=== PATIENT | male | born 1955 | race Two or more races ===

== ENCOUNTER 2023-05-02 13:54 | Emergency (ER) | payer OTHER ==
[~2023-05-02] VITALS: Ht 172.7 cm; Wt 86.2 kg
[2023-05-02] MEDS ORDERED: TIROSINT125 MCG PO (14:30)
[2023-05-02] MEDS ORDERED: CARVEDILOL ER40 MG PO (14:31)
[2023-05-02] MEDS ORDERED: CLARITIN10 M1 PO (14:32)
[2023-05-02] MEDS ORDERED: COZAAR100 MG PO (14:32)
[2023-05-02] MEDS ORDERED: COLACE100 MG PO (14:32)
[2023-05-02] MEDS ORDERED: CRESTOR40 MG PO (14:33)
[2023-05-02] MEDS ORDERED: FINASTERIDE5 MG PO (14:33)
[2023-05-02] MEDS ORDERED: ACTOS15 MG PO (14:33)
[2023-05-02] MEDS ORDERED: TUSNEL LIQUID178 ML PO (15:55)
[2023-05-02] MEDS ORDERED: PAXLOVID 300-11 EACH PO (15:55)
== END 2023-05-02 18:07 | disposition home or self-care (01) ==
LOC: ER 13:54
DX: U07.1 COVID-19 (principal); E11.9 Type 2 diabetes mellitus without complications; Z79.84 Long term (current) use of oral hypoglycemic drugs; I10 Essential (primary) hypertension; Z88.8 Allergy status to other drugs, medicaments and biological substances